=== PATIENT | male | born 1985 | race American Indian/Alaskan Native ===

== ENCOUNTER 2017-09-18 03:17 | Emergency (ER) | payer SELFPAY ==
[2017-09-18 03:22] VITALS: BP 144/93
== END 2017-09-18 04:26 | disposition left against medical advice (07) ==
LOC: ED 03:17
DX: J45.909 Unspecified asthma, uncomplicated (principal); Z53.21 Procedure and treatment not carried out due to patient leaving prior to being seen by health care provider